=== PATIENT | male | born 1960 | race Caucasian/White ===

== ENCOUNTER → 2016-12-02 | Outpatient (CLI) | payer BC | LOC: COL.RAD 13:30 | DX: R10.32 Left lower quadrant pain (principal); Z98.890 Other specified postprocedural states ==

== ENCOUNTER 2019-07-05 22:54 | Emergency (ER) | payer BC ==
[~2019-07-05] VITALS: Ht 185.4 cm; Wt 70.5 kg
[2019-07-05 23:11] VITALS: BP 147/84; TEMP 98.8
[2019-07-06 03:40] VITALS: PULSE 63
== END 2019-07-06 03:40 | disposition home or self-care (01) ==
LOC: COL.ER 22:54
DX: S61.111A Laceration without foreign body of right thumb with damage to nail, initial encounter (principal); Z23 Encounter for immunization; W26.0XXA Contact with knife, initial encounter; Y92.009 Unspecified place in unspecified non-institutional (private) residence as the place of occurrence of the external cause

== ENCOUNTER 2019-08-07 15:13 | Emergency (ER) | payer BC ==
[~2019-08-07] VITALS: Ht 182.9 cm; Wt 70.5 kg
[2019-08-07 15:30] VITALS: TEMP 98.8
[2019-08-07 17:46] VITALS: BP 151/88; PULSE 65
== END 2019-08-07 17:46 | disposition short-term general hospital (02) ==
LOC: COL.ER 15:13
DX: S98.122A Partial traumatic amputation of left great toe, initial encounter (principal); W20.8XXA Other cause of strike by thrown, projected or falling object, initial encounter; Y92.009 Unspecified place in unspecified non-institutional (private) residence as the place of occurrence of the external cause
CPT/HCPCS: J0690; J3010; J7030; Q4045

== ENCOUNTER → 2021-11-12 | Outpatient (CLI) | payer BC | LOC: MHCPAIN 14:29 | DX: M47.812 Spondylosis without myelopathy or radiculopathy, cervical region (principal); M54.12 Radiculopathy, cervical region; G89.29 Other chronic pain | CPT/HCPCS: G0463 ==

== ENCOUNTER → 2021-11-26 | Outpatient (CLI) | payer BC | LOC: MHCPAIN 14:05 | DX: M47.812 Spondylosis without myelopathy or radiculopathy, cervical region (principal); M54.12 Radiculopathy, cervical region | CPT/HCPCS: J1100; Q9967 ==

== ENCOUNTER 2022-07-18 09:52 | Day surgery (SDC) | payer BC ==
[~2022-07-18] VITALS: Ht 182.9 cm; Wt 73.7 kg
--- NOTE | 2022-07-18 10:04 | NUR ---
Initial visit; Patient thanked [employer] for offering prayer and encouragement prior to his 'Procedure.'
[2022-07-18 12:35] VITALS: BP 102/64; PULSE 67; TEMP 96.8
--- NOTE | 2022-07-18 12:49 | NUR ---
1235 - PT arrives and was settled by Eloise RADFORD; Verbal room report then obtained. Snack and drink provided; PT denies pain/nasuea. Non-slip socks are on. Call armando within reach and PT states he will contact ride.
[2022-07-18 12:50] VITALS: BP 118/80; PULSE 73
--- NOTE | 2022-07-18 12:53 | NUR ---
1250 - PT has finished snack and drink; denies pain/nausea. VSS. PT expressed desire to be discharged, awaiting DR to speak w/ PT.
[2022-07-18 13:05] VITALS: BP 115/89; PULSE 63
--- NOTE | 2022-07-18 13:05 | NUR ---
1305 - DR spoke w/ PT. VSS. IV discontinued. Catheter tip intact and pressure bandage applied; no redness or swelling noted. DC instructions and educational material reveiwed w/ PT and visitor. PT verbalized understanding and signed related paperwork. Questions answered to PT satisfaction. PT refused RN assistance changing into personal clothes. Call armando remains within reach if needed. 1310 - PT dismissed from endo via wheelchair to PT entrence by Ashwini RADFORD. PT has DC packet and personal belongings, transferred into the care of his father, who is driving private car.
[2022-07-18] MEDS ORDERED: FLOMAX 0.40.4 MG/CAP PO (13:44)
[2022-07-18] MEDS ORDERED: BACTRIM DS 8001 TAB PO (13:45)
[2022-07-18 13:47] VITALS: BP 133/96; PULSE 62; TEMP 97.1
== END 2022-07-18 13:18 | disposition home or self-care (01) ==
LOC: SDCO 09:52
DX: Z12.11 Encounter for screening for malignant neoplasm of colon (principal)
CPT/HCPCS: J2704; J7030

== ENCOUNTER 2022-12-23 09:42 | Outpatient (CLI) | payer BC ==
[2022-12-23] VITALS (8 sets, daily range): BP systolic 156–173; BP diastolic 96–102; PULSE 52–70; TEMP 98.3
[~2022-12-23] VITALS: Ht 182.9 cm; Wt 75.0 kg
[~2022-12-23 09:42] MED LIST: BACTRIM DS 8001 TAB PO; FLOMAX 0.40.4 MG/CAP PO; RILUTEK 50MG TA50 MG PO
== END 2022-12-23 15:35 | disposition home or self-care (01) ==
LOC: COL.RAD 09:42
DX: M48.02 Spinal stenosis, cervical region (principal); M54.6 Pain in thoracic spine; Z98.1 Arthrodesis status
CPT/HCPCS: Q9967

== ENCOUNTER → 2024-01-05 | Outpatient (CLI) | payer BC | LOC: COL.RAD 06:54 | DX: M54.2 Cervicalgia (principal) ==